=== PATIENT | female | born 2000 | race Caucasian/White ===

== ENCOUNTER → 2018-05-03 | Outpatient (CLI) | payer BC ==
[~2018-05-03] MED LIST: AMOX500T10 PO; LIDO15SO2 PO; ONDA4TAB9 PO; OXYC-865 PO
[2018-05-03 12:45] LABS: PLATELET COUNT, AUTOMATED 268 K/uL (150-450)
== END ==
LOC: LAB 12:18
PROVIDERS: ATTEND Nurse Practitioner
DX: K52.9 Noninfective gastroenteritis and colitis, unspecified (principal); L65.9 Nonscarring hair loss, unspecified; R53.83 Other fatigue
CPT/HCPCS: 36415; 85025

== ENCOUNTER 2018-05-06 00:07 | Day surgery (SDC) | payer BC ==
[2018-05-06] VITALS (8 sets, daily range): BP systolic 114–129; BP diastolic 57–86
[~2018-05-06] VITALS: Ht 170.2 cm; Wt 78.0 kg
[2018-05-06] MEDS ORDERED: PROPOFOL EMUL(*) 10MG/ML 20 ML 20 ML ONE (08:39)
[2018-05-06] MEDS ORDERED: DEXAMETHASONE SOD PHOS 10MG/ML ONE (08:39)
[2018-05-06] MEDS ORDERED: ONDANSETRON 4 MG/2 ML VIAL ONE ×2 (08:39→09:55)
[2018-05-06] MEDS ORDERED: HYDROmorphone HCL 2 MG/ML SDV ONE (08:39)
[2018-05-06] MEDS ORDERED: ceFAZolin(*) 2GM/D5W 50ML 50 ML IVPB ONE (08:55)
[2018-05-06] MEDS ORDERED: AMOX500T10 PO (09:14)
[2018-05-06] MEDS ORDERED: LIDO15SO2 PO (09:23)
--- NOTE | 2018-05-06 09:24 | OPERATIVE REPORT 1 ---
EVENT DATE: May 06, 2018 SURGEON: Boone Vazquez Jr., MD ANESTHESIOLOGIST: Camacho Condon M.D. ANESTHESIA: LMA. PROCEDURE PERFORMED Tonsillectomy. PREOPERATIVE DIAGNOSIS Recurrent acute tonsillitis. POSTOPERATIVE DIAGNOSIS Recurrent acute tonsillitis. INDICATIONS Please refer to the preoperative note. DESCRIPTION OF PROCEDURE The patient was positively identified in the preoperative area. She was there alone. Risks and benefits were explained including, but not limited to, bleeding, infection and those associated with anesthesia. She acknowledged understanding those risks. She was then brought back to the operating suite, laid supine on the operating table and anesthesia was administered. Once asleep, the patient was positioned, prepped and draped in the usual sterile fashion. A McIvor Mouth Gag was placed in the patient's oral cavity. Red rubber catheter was placed through the right nostril and utilized to suspend the soft palate. The patient was noted to have 3+ tonsils bilaterally. The right tonsil was grasped with curved Allis forceps and carefully dissected from the lateral pharyngeal wall with suction Bovie electrocautery. In a similar fashion, the contralateral tonsil was removed. Hemostasis was obtained with suction Bovie electrocautery. The patient was then returned to Anesthesia for emergence. ESTIMATED BLOOD LOSS 25 cc. COMPLICATIONS No complications. MTDD
[2018-05-06] MEDS ORDERED: OXYC-865 PO (09:25)
[2018-05-06] MEDS ORDERED: ONDA4TAB9 PO (09:28)
--- NOTE | 2018-05-06 10:00 | NUR ---
RN INTO ROOM TO ASSESS PT. REPORTS NAUSEA. DRY HEAVING. WILL GIVE ZOFRAN PER DR. HARMON'S ORDERS. PT. STATES NAUSEA WITH ABX AND PAIN MEDICATION. DR. ENRIQUE WROTE SCRIPT FOR ZOFRAN. PAIN REASSESSED, INCREASING. WILL GIVEN PO NARCOTIC AFTER ZOFRAN.
--- NOTE | 2018-05-06 10:20 | NUR ---
D/C INSTRUCTIONS REVIEWED WITH PT. AND STEPSISTER. NO CONCERNS. NAUSEA IMPROVING.
[2018-05-06] MEDS ORDERED: MIDAZOLAM 2 MG/2 ML VIAL IVP PRN (13:25)
[2018-05-06] MEDS ORDERED: FAMOTIDINE 20 MG TAB PO ONE (13:25)
[2018-05-06] MEDS ORDERED: LIDOCAINE/SOD BICARB 8.4% SYR ID ONE (13:25)
[2018-05-06] MEDS ORDERED: NORMOSOL R SOLN(*) 1000 ML BAG 1,000 ML IV PRN (13:25)
== END 2018-05-06 09:44 | disposition home or self-care (01) ==
LOC: OR 00:07
PROVIDERS: ATTEND Otolaryngology
DX: J03.91 Acute recurrent tonsillitis, unspecified (principal)
CPT/HCPCS: 42826; 81025; 88304; J1100; J1170; J2250; J2405; J2704; J0690

== ENCOUNTER 2018-05-08 10:58 | Emergency (ER) | payer BC ==
[2018-05-08] MEDS ORDERED: EPINEPHrine 0.3 MG SYR IM ONLY ONE (11:15)
[2018-05-08] MEDS ORDERED: diphenhydrAMINE 50 MG/ML VIAL IVP ONE (11:15)
[2018-05-08] MEDS ORDERED: methylPREDNIS SUCC 125 MG/2ML IVP ONE (11:15)
[2018-05-08] MEDS ORDERED: FAMOTIDINE(*) 20MG/50ML PREMIX 50 ML IVPB ONE (11:15)
[2018-05-08] MEDS ORDERED: ANAPHYLAXIS KIT 1 EA ONE (11:18)
--- NOTE | 2018-05-08 11:18 | ER Report ---
History and Physical Time Seen By MD: 11:05 Hx. of Stated Complaint: TONSILECTOMY ON SUNDAY - INCREASED SWELLING AND PAIN THIS AM. HPI/ROS CHIEF COMPLAINT: Throat swelling HISTORY OF PRESENT ILLNESS: Patient is an otherwise healthy 17 oh female who 48 hours ago had her tonsils removed subsequently in the last 12-20 far she took a dose of viscous lidocaine and after which felt swelling of her throat she comes in today with tongue swelling swelling of her throat uvular swelling as well says difficulty in swallowing and difficulty with breathing patient denies any cough fever chills or additional complaints noted REVIEW OF SYSTEMS: Respiratory: No cough, no dyspnea. Cardiovascular: No chest pain, no palpitations. Gastrointestinal: No vomiting, no abdominal pain. Musculoskeletal: No back pain. Remainder of the 14 system rev: Yes Allergies: Coded Allergies: No Known Drug Allergies (Unverified , 05/08/18) Home Meds Reported Medications Ondansetron 4 Mg Odt (ONDANSETRON 4 MG ODT) 4 Mg Tab.rapdis, 4 MG PO Q6H PRN for NAUSEA, #15 TAB 05/06/18 Oxycodone Hcl/Acetaminophen (PERCOCET 5-325 MG TABLET) 1 Each Tablet, 1-2 EACH PO Q6H PRN for PAIN, #30 TAB MAX 8 IN 24 05/06/18 Lidocaine HCl VISCOUS 2% (Lidocaine Viscous) 2 % Solution, 15 ML PO Q2H PRN for PAIN, #500 1 Refill SWISH AND SPIT, DO NOT SWOLLOW 05/06/18 Amoxicillin 500 Mg Tab (AMOXICILLIN 500 MG TAB) 500 Mg Tablet, 1 TAB PO Q8H for 7 Days, #21 TAB 05/06/18 Reviewed Nurses Notes: Yes Old Medical Records Reviewed: Yes Hx Smoking: No Smoking Status: Never Smoker Hx Substance Use Disorder: No Hx Alcohol Use: Yes Constitutional Vital Sign - Last 24 Hours 05/08/18 11:03 Temp 98.1 Pulse 70 Resp 20 B/P (MAP) 109/69 Pulse Ox 92 O2 Delivery Room Air Physical Exam General Appearance: The patient is alert, has no immediate need for airway protection and no current signs of toxicity. [ ] Eyes: Pupils equal and round no injection. Respiratory: Chest is non tender, lungs are clear to auscultation. Cardiac: regular rate and rhythm [ ] Gastrointestinal: Abdomen is soft and non tender, no masses, bowel sounds normal. Musculoskeletal: Neck: Neck is supple and non tender. Extremities have full range of motion and are non tender. Skin: No rashes or lesions. HEENT examination of throat shows posterior bilateral pharyngeal erythema and scarring from the the tonsil ectomy procedure that was performed the uvula is s wollen and erythematous tongue also appears to be swollen as well patient has some redness and erythema in the posterior pharynx is noted able to move her with a patent airway at the time of presentation DIFFERENTIAL DIAGNOSIS: After history and physical exam differential diagnosis was considered for acute allergic reaction anaphylactic reaction angioedema postoperative complication Medical Decision Making ED Course/Re-evaluation ED Course ED clinical course H no female 2 days status postop for bilateral tonsillitis and tonsillar removal. With some swelling: After using viscous lidocaine treated with epinephrine Benadryl and steroids she significantly better ENT at bedside for bedside consult is agreed that she safe for discharge diagnosis acute allergic reaction Decision to Disposition Date: May 08, 2018 Decision to Disposition Time: 12:11 Depart Departure Latest Vital Signs Vital Signs Date Time Temp Pulse Resp B/P (MAP) Pulse Ox O2 Delivery O2 Flow Rate FiO2 05/08/18 11:03 98.1 70 20 109/69 92 Room Air Impression: Primary Impression: Acute allergic reaction Condition: Stable Disposition: HOME OR SELF-CARE Referrals: NINOSKA CANSECO BRUSHER OPERATOR (PCP) Patient Instructions: General Allergic Reaction (ED) NGUYEN TAMAYO MD May 08, 2018 11:18
[2018-05-08] MEDS ORDERED: NS(*) 0.9% 1000 ML BAG 1,000 ML IV ONE (11:30)
[2018-05-08] MEDS ORDERED: ONDANSETRON 4 MG/2 ML VIAL IVP ONE (11:30)
[2018-05-08 12:18] VITALS: BP 134/69
== END 2018-05-08 12:17 | disposition home or self-care (01) ==
LOC: ER 11:12
DX: T78.40XA Allergy, unspecified, initial encounter (principal); Z98.890 Other specified postprocedural states
CPT/HCPCS: 81001; 96361; 96374; 96375; 99284; J0171; J1200; J2405; J2930; J3490; J7030

== ENCOUNTER → 2018-05-22 | Outpatient (CLI) | payer BC | LOC: LAB 12:22 | PROVIDERS: ATTEND Nurse Practitioner | DX: L65.9 Nonscarring hair loss, unspecified (principal); R53.83 Other fatigue | CPT/HCPCS: 36415; 84443 ==